=== PATIENT | male | born 1975 | race Caucasian/White ===

== ENCOUNTER → 2023-07-25 11:48 | Outpatient (CLI) | payer OTHER, SELFPAY ==
[2023-07-25 12:51] LABS: Albumin 4.4 g/dL (3.5-5.0); BUN Creatinine Ratio 12.3 (6-22); Blood Urea Nitrogen 10 mg/dL (9-20); Calcium 9.9 mg/dL (8.4-10.2); Carbon Dioxide 32 mmol/L (22-32); Chloride 98 mmol/L (98-107); Estimated Glomerular Filt Rate > 60 mL/min (>60); Glucose 97 mg/dL (70-100); HEMOLYSIS < 15 (0-50); Magnesium 1.4 mg/dL (1.6-2.3); Phosphorous 3.1 mg/dL (2.5-4.5); Potassium 3.8 mmol/L (3.4-5.1); Sodium 135 mmol/L (137-145); Uric Acid 7.6 mg/dL (3.5-8.5)
== END ==
PROVIDERS: PCP Family Medicine; Referring Provider Internal Medicine Nephrology; Visit Provider Internal Medicine Nephrology
DX: E23.2 Diabetes insipidus (principal)
CPT/HCPCS: 36415; 80069; 83735; 84550

== ENCOUNTER → 2024-06-05 12:16 | Outpatient (CLI) | payer OTHER, SELFPAY ==
[2024-06-05 13:09] LABS: Hematocrit 52.7 % (41-53); Hemoglobin 18.1 g/dL (13.5-17.5); Mean Corpuscular HGB Conc 34.4 % (30-36); Mean Corpuscular Hemoglobin 29.7 PG (26-34); Mean Corpuscular Volume 86.5 fL (80-100); Platelet Count 358 X10^3/uL (150-400); Red Blood Cell Count 6.09 X10^6/uL (4.5-5.9); Red Cell Distribution Width 13.7 % (11.6-14.8); White Blood Cell Count 7.8 X10^3/uL (4.5-11.0)
[2024-06-05 13:23] LABS: Hemoglobin A1C% w Est Avg Glu 5.7 % (4.0-6.0)
[2024-06-05 13:32] LABS: Alanine Aminotransferase 47 IU/L (<50); Albumin 4.9 g/dL (3.5-5.0); Albumin Globulin Ratio 1.7 (1.0-2.8); Alkaline Phosphatase 64 U/L (38-126); Aspartate Aminotransferase 46 IU/L (17-59); Bilirubin Total 0.8 mg/dL (0.2-1.3); Blood Urea Nitrogen 12 mg/dL (9-20); Calcium 10.2 mg/dL (8.4-10.2); Carbon Dioxide 27 mmol/L (22-32); Chloride 101 mmol/L (98-107); Estimated Glomerular Filt Rate > 60 mL/min (>60); Globulin 2.9 g/dL (1.7-4.1); Glucose 105 mg/dL (70-100); HEMOLYSIS < 15 (0-50); Sodium 139 mmol/L (137-145); Total Protein 7.8 g/dL (6.3-8.2)
== END ==
PROVIDERS: PCP Family Medicine; Referring Provider Family Medicine; Visit Provider Family Medicine
DX: N25.1 Nephrogenic diabetes insipidus (principal)
CPT/HCPCS: 36415; 80053; 83036; 85027